=== PATIENT | male | born 1965 | race Caucasian/White ===

== ENCOUNTER 2016-06-03 22:29 | Emergency (ER) | payer BC ==
[2016-06-03 23:28] LABS: BASO % 0.3 % (0.2-1.2); EOS # 0.1 10_X3_uL (0.0-0.5); EOS % 1.2 % (0.8-7.0); GRAN # 5.4 10_X3_uL (1.8-5.4); GRAN % 71.3 % (34.0-67.9); LYMPH # 1.5 10_X3_uL (1.3-3.6); LYMPH % 20.4 % (21.8-53.1); MEAN CORPUSCULAR HGB CONC 32.7 g/dL (32.0-36.0); MEAN CORPUSCULAR VOLUME 75.2 fL (79-92); MEAN PLATELET VOLUME 10.8 fl (7.5-11.5); MONO # 0.5 10_X3_uL (0.3-0.8); MONO % 6.8 % (5.3-12.2); PLATELET COUNT 151 x10_3/uL (163-337); RED BLOOD COUNT 3.99 x10_6/uL (4.6-6.1); RED CELL DISTRIBUTION WIDTH 15.5 % (11.6-14.4); WHITE BLOOD COUNT 7.5 x10_3/uL (4.2-9.1)
[2016-06-03 23:31] LABS: HEMOGLOBIN 9.8 g/dL (13.7-17.5); MEAN CORPUSCULAR HEMOGLOBIN 24.5 pg (27.0-33.0)
[2016-06-03 23:59] LABS: ALBUMIN 3.2 gm/dL (3.4-5.0); ALKALINE PHOSPHATASE 78 U/L (50-136); ALT/SGPT 11 U/L (7.53-40.17); AST/SGOT 13 U/L (6.66-35.34); BILIRUBIN,TOTAL 0.31 mg/dL (0.0-1.0); BLOOD UREA NITROGEN 14 mg/dL (7-18); CARBON DIOXIDE 24 mmol/L (21-32); CREATININE 0.8 mg/dL (0.6-1.3); GLUCOSE,RANDOM 113 mg/dL (70-99); POTASSIUM 3.9 mmol/L (3.5-5.1); SODIUM 134 mmol/L (136-145); TOTAL PROTEIN 7.1 gm/dL (6.4-8.2)
== END 2016-06-04 01:15 | disposition home or self-care (01) ==
LOC: ER 22:29
PROVIDERS: General Practice
DX: J44.9 Chronic obstructive pulmonary disease, unspecified (principal); J18.9 Pneumonia, unspecified organism; D64.9 Anemia, unspecified; I10 Essential (primary) hypertension; I50.9 Heart failure, unspecified; R60.9 Edema, unspecified; J45.909 Unspecified asthma, uncomplicated; G89.4 Chronic pain syndrome; Z88.6 Allergy status to analgesic agent; Z79.899 Other long term (current) drug therapy
CPT/HCPCS: 36415; 71020; 80053; 83880; 85025; 94664; 96365; 96375; 99070; 99283-25; 99284; J2930